=== PATIENT | female | born 1990 | race Caucasian/White ===

== ENCOUNTER 2017-09-09 21:56 | Emergency (ER) | payer OTHER ==
[~2017-09-09] VITALS: Ht 162.6 cm; Wt 49.0 kg
[2017-09-09] MEDS ORDERED: PROTECT PLUS S1 EACH (22:04)
[2017-09-10] MEDS ORDERED: BACTRIM DS TAB1 EACH PO (03:32)
[2017-09-10] MEDS ORDERED: KETO10TA2 PO (03:32)
== END 2017-09-10 03:30 | disposition home or self-care (01) ==
LOC: ER 21:56
DX: N39.0 Urinary tract infection, site not specified (principal); R10.2 Pelvic and perineal pain